=== PATIENT | female | born 1950 | race American Indian/Alaskan Native ===

== ENCOUNTER 2017-04-04 12:36 | Emergency (ER) | payer OTHER, MEDICARE, MEDICAID ==
[2017-04-04 12:57] VITALS: BP 169/96
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
== END 2017-04-04 14:55 | disposition home or self-care (01) ==
LOC: DL.ED 12:36
DX: S16.1XXA Strain of muscle, fascia and tendon at neck level, initial encounter (principal); I11.0 Hypertensive heart disease with heart failure; I50.9 Heart failure, unspecified; I25.10 Atherosclerotic heart disease of native coronary artery without angina pectoris; E78.00 Pure hypercholesterolemia, unspecified; K21.9 Gastro-esophageal reflux disease without esophagitis; F17.210 Nicotine dependence, cigarettes, uncomplicated; Z90.49 Acquired absence of other specified parts of digestive tract; Z90.710 Acquired absence of both cervix and uterus; Z98.890 Other specified postprocedural states; Z79.82 Long term (current) use of aspirin; Z88.0 Allergy status to penicillin; Z88.5 Allergy status to narcotic agent; Z88.8 Allergy status to other drugs, medicaments and biological substances; Z88.1 Allergy status to other antibiotic agents; V49.50XA Passenger injured in collision with unspecified motor vehicles in traffic accident, initial encounter; Y92.410 Unspecified street and highway as the place of occurrence of the external cause
CPT/HCPCS: 72125; 72128; 99283

== ENCOUNTER 2017-11-05 21:54 | Emergency (ER) | payer MEDICARE, MEDICAID ==
[2017-11-05 22:00] VITALS: BP 148/70
--- NOTE | 2017-11-05 22:01 | EDM.PDOC ---
ED HPI GENERAL MEDICAL PROBLEM - General Chief Complaint: Lower Extremity Injury/Pain Stated Complaint: KNEE PROBLEM [id number] Time Seen by Provider: 11/05/17 21:59 Source of Information: Reports: Patient History Limitations: Reports: No Limitations - History of Present Illness INITIAL COMMENTS - FREE TEXT/NARRATIVE: twisted knee yesterday, all swollen and painful now. Left Knee Pain Score (Numeric/FACES): 5 - Related Data Allergies Allergy/AdvReac Type Severity Reaction Status Date / Time codeine Allergy Severe Swelling Verified 11/05/17 22:04 doxycycline Allergy Nausea and Verified 11/05/17 22:04 Vomiting eletriptan HBr [From Relpax] Allergy Nausea and Verified 11/05/17 22:04 Vomiting Penicillins Allergy Airway Verified 11/05/17 22:04 Tightness pseudoephedrine Allergy Nausea and Verified 11/05/17 22:04 Vomiting tramadol Allergy Nausea and Verified 11/05/17 22:04 Vomiting Home Meds: Home Meds Furosemide [Lasix] 20 mg PO ASDIRECTED PRN 11/05/13 [History] Gabapentin [Neurontin] 300 mg PO TID 04/23/15 [History] Nitroglycerin [Nitrostat] 1 tab SL ASDIRECTED PRN 04/23/15 [History] oxyCODONE HCl/Acetaminophen [Percocet 10-325 mg Tablet] 1 each PO TID PRN [History] Past Medical History HEENT History: Reports: Impaired Vision Cardiovascular History: Reports: Arrhythmia, CAD, Heart Failure, High Cholesterol, Hypertension Gastrointestinal History: Reports: Chronic Constipation, GERD 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: Musculoskeletal History: Reports: Other (See Below) Other Musculoskeletal History: scoliosis - Past Surgical History HEENT Surgical History: Reports: Tonsillectomy Respiratory Surgical History: Reports: None GI Surgical History: Reports: Appendectomy, Cholecystectomy Female Surgical History: Reports: Section, Hysterectomy Musculoskeletal Surgical History: Reports: Arthroscopic Knee Social & Family History - Family History Cardiac: Reports: CAD Oncologic: Reports: Lung - Tobacco Use Smoking Status *Q: Current Every Day Smoker Years of Tobacco use: 30 Packs/Tins Daily: 0.5 Used Tobacco, but Quit: No Second Hand Smoke Exposure: No - Caffeine Use Caffeine Use: Reports: Coffee, Tea - Alcohol Use Days Per Week of Alcohol Use: 0 - Recreational Drug Use Recreational Drug Use: No - Living Situation & Occupation Living situation: Reports: with Family Occupation: Unemployed Review of Systems - Review of Systems Review Of Systems: ROS reveals no pertinent complaints other than HPI. ED EXAM, GENERAL - Physical Exam Exam: See Below Exam Limited By: No Limitations General Appearance: Alert, WD/WN, Mild Distress, Other (discomfort) Ears: Hearing Grossly Normal Throat/Mouth: Normal Voice, No Airway Compromise Head: Atraumatic Neck: Non-Tender, Full Range of Motion Respiratory/Chest: No Respiratory Distress Cardiovascular: Regular Rate, Rhythm GI/Abdominal: Soft, Non-Tender Extremities: Other (left knee swollen tender R/P, NV wnl, gait limited to pain) Neurological: Alert, Oriented, Normal Cognition, No Motor/Sensory Deficits Psychiatric: Normal Affect, Normal Mood Skin Exam: Warm, Dry, Normal Color Lymphatic: No Adenopathy Course - Vital Signs Last Recorded V/S: Last Vital Signs Temp 36.8 C 11/05/17 21:58 Pulse 88 11/05/17 21:58 Resp 16 11/05/17 21:58 BP 148/70 H 11/05/17 21:58 Pulse Ox 99 11/05/17 21:58 - Re-Assessments/Exams Free Text/Narrative Re-Assessment/Exam: 11/05/17 22:32 results discussed with pt Departure - Departure Time of Disposition: 22:32 Disposition: Home, Self-Care 01 Condition: Good Clinical Impression: Sprain of knee - Discharge Information Instructions: Knee Sprain, Adult, [id number] Forms: ED Department Discharge Additional Instructions: 1) elevate knee as much as possible 2) wear YUE for comfort 3) see clinic tomorrow for MRI SCAN of knee OR ORTHOPEDIC REFERRAL
[2017-11-05] MEDS ORDERED: traMADol 50 MG Tab PO ONE (22:32)
[2017-11-05] MEDS ORDERED: Ketorolac 30 MG/ML SDV IM ONE (22:40)
== END 2017-11-05 22:48 | disposition home or self-care (01) ==
LOC: DL.ED 21:54
DX: S83.92XA Sprain of unspecified site of left knee, initial encounter (principal); I11.0 Hypertensive heart disease with heart failure; I50.9 Heart failure, unspecified; F17.210 Nicotine dependence, cigarettes, uncomplicated; Z88.5 Allergy status to narcotic agent; Z88.1 Allergy status to other antibiotic agents; Z88.0 Allergy status to penicillin; Z88.8 Allergy status to other drugs, medicaments and biological substances; Z79.899 Other long term (current) drug therapy; X50.9XXA Other and unspecified overexertion or strenuous movements or postures, initial encounter
CPT/HCPCS: 73562; 96372; 99283; J1885

== ENCOUNTER 2017-12-12 21:52 | Emergency (ER) | payer MEDICARE, MEDICAID ==
[2017-12-12] MEDS ORDERED: Lidocaine 1% 30 ML SDV INJECT ONE (22:44)
[2017-12-12] MEDS ORDERED: Clindamycin HCl 150 MG Cap PO ONE (22:46)
[2017-12-12] MEDS ORDERED: Acetaminophen/oxyCODONE 325-5 MG Tab PO ONE (22:49)
[2017-12-12] MEDS ORDERED: Ketorolac 30 MG/ML SDV IM ONE (23:04)
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
[2017-12-12 23:16] VITALS: BP 136/65
== END 2017-12-12 23:24 | disposition home or self-care (01) ==
LOC: DL.ED 21:52
DX: L02.31 Cutaneous abscess of buttock (principal); F17.210 Nicotine dependence, cigarettes, uncomplicated; I11.0 Hypertensive heart disease with heart failure; I50.9 Heart failure, unspecified; E78.00 Pure hypercholesterolemia, unspecified; K21.9 Gastro-esophageal reflux disease without esophagitis; Z79.899 Other long term (current) drug therapy; Z88.1 Allergy status to other antibiotic agents; Z88.0 Allergy status to penicillin; Z88.8 Allergy status to other drugs, medicaments and biological substances; Z88.5 Allergy status to narcotic agent
CPT/HCPCS: 10060; 96372; 99282; 99283; A9270-GY; J1885

== ENCOUNTER 2017-12-13 10:51 | Day surgery (SDC) | payer MEDICARE, MEDICAID ==
[2017-12-13] MEDS ORDERED: Dexamethasone 4 MG/ML SDV IV ONE (10:52)
[2017-12-13] MEDS ORDERED: Midazolam 1 MG/ML 2 ML SDV IV ONE (10:52)
[2017-12-13] MEDS ORDERED: Propofol 200 MG/20 ML SDV IV ONE (10:52)
[2017-12-13] MEDS ORDERED: fentaNYL 100 MCG/2 ML SDV IV ONE (10:52)
[2017-12-13] MEDS ORDERED: Lactated Ringers 1,000 ML IV SCH (11:30)
[2017-12-13] MEDS ORDERED: Lidocaine 1% 30 ML SDV ONE (12:39)
[2017-12-13] MEDS ORDERED: Lidocaine 1% 30 ML SDV INJECT ONE (13:03)
[2017-12-13 14:51] VITALS: BP 111/55
--- NOTE | 2017-12-14 01:08 | OR ---
DATE: 12/13/2017 PREOPERATIVE DIAGNOSIS: Right perirectal abscess. POSTOPERATIVE DIAGNOSIS: Right buttocks abscess, does not seem to be a pair rectal with no communication to the rectum. PROCEDURE: Incision and drainage with debridement of right buttocks abscess. ANESTHESIA: Local plus MAC. SPECIMEN: Necrotic skin and culture. OPERATIVE FINDINGS: About a 1 cm necrotic full-thickness area of skin overlying some purulent drainage of the right buttocks. INDICATION FOR PROCEDURE: This 67-year-old female presented to the emergency room with complaints of a week-long history of right-sided buttock pain. The patient states that it is kind of spontaneously drained, but really this is secondary to some necrotic skin. It is difficult to tell if this is really a perirectal or straightforward buttocks abscess. PROCEDURE IN DETAIL: After adequate preparation, xylocaine was used to infiltrate an elliptical area around this necrotic skin. This was carried full thickness through the skin and down into subcutaneous tissue where healthy tissue was encountered. Culture of the deep wound was taken both aerobic and anaerobic and the excised necrotic skin was sent for specimen. Hemostasis was controlled by cautery. The wound was packed open with a 2 x 2 gauze pad and the patient will change this daily at home. [facility] /[id number]
== END 2017-12-13 14:45 | disposition home or self-care (01) ==
LOC: DL.SDS 10:51 → DL.GSCL 10:51 → EDSTATUS 11:30 → DL.SDS 14:45
PROVIDERS: ATTEND Surgery
DX: L02.31 Cutaneous abscess of buttock (principal); I25.2 Old myocardial infarction; Z88.0 Allergy status to penicillin; Z88.5 Allergy status to narcotic agent; Z88.8 Allergy status to other drugs, medicaments and biological substances
CPT/HCPCS: 10060; 87070; 87075; 87077; 87186; 93005; 93010; J1100; J2250; J2704; J3010; J7120; 88304

== ENCOUNTER 2023-08-14 18:12 | Emergency (ER) | payer MEDICARE, MEDICAID ==
[2023-08-14 18:30] VITALS: BP 218/96; PULSE 79
[2023-08-14 18:49] LABS: HEMATOCRIT 39.4 % (37.0-47.0); HEMOGLOBIN 13.2 g/dL (12.0-16.0); MEAN CORPUSCULAR HEMOGLOBIN 29.6 pg (27.0-34.0); MEAN CORPUSCULAR HGB CONC 33.5 g/dL (33.0-35.0); MEAN CORPUSCULAR VOLUME 88.3 fL (80-100); PLATELET COUNT,PLT 222 10^3/uL (150-450); RED BLOOD CELL COUNT 4.46 10^6/uL (4.2-5.4); WHITE BLOOD CELL COUNT,WBC 9.1 10^3/uL (5.0-10.0)
[2023-08-14 18:52] LABS: BASOPHILS PERCENT AUTO 0.4 % (0.0-1.0); LYMPHOCYTES PERCENT AUTO 17.6 % (20.5-50.1); MONOCYTES PERCENT AUTO 7.1 % (2-8); NEUTROPHILS PERCENT AUTO 40.9 % (42.2-75.2)
[2023-08-14 19:07] LABS: A/G RATIO 1.1; ALANINE AMINOTRANSFERASE,ALT 18 U/L (14-59); ALBUMIN 3.5 g/dL (3.4-5.0); ALKALINE PHOSPHATASE 84 U/L (46-116); ANION GAP 9.6 mEq/L (7-13); ASPARTATE AMNIOTRANSFERASE,AST 17 U/L (15-37); BILIRUBIN TOTAL 0.4 mg/dL (0.2-1.0); BLOOD UREA NITROGEN,BUN 9 mg/dL (7-18); BUN/CREATININE RATIO 13.6 (No establ ref range); CALCIUM 8.7 mg/dL (8.5-10.1); CARBON DIOXIDE,CO2 28 mmol/L (21-32); CHLORIDE,CL 104 mmol/L (98-107); CREATININE 0.66 mg/dL (0.55-1.02); GLUCOSE RANDOM 100 mg/dL (70-99); POTASSIUM,K 3.6 mmol/L (3.5-5.1); PROTEIN TOTAL,TP 6.8 g/dL (6.4-8.2); SODIUM,NA 138 mmol/L (136-145)
[2023-08-14 19:13] LABS: ESTIMATED GFR 93 mL/min (>=60)
[2023-08-14 20:29] LABS: EOSINOPHILS PERCENT MAN 36 % (1-3); LYMPHOCYTES PERCENT MAN 18 % (20-50); MONOCYTES PERCENT MAN 3 % (2-8); SEG NEUTROPHILS PERCENT MAN 43 % (42-75)
== END 2023-08-14 19:33 | disposition home or self-care (01) ==
LOC: DL.ED 18:12
DX: J44.1 Chronic obstructive pulmonary disease with (acute) exacerbation (principal); I11.0 Hypertensive heart disease with heart failure; I50.9 Heart failure, unspecified; I25.10 Atherosclerotic heart disease of native coronary artery without angina pectoris; I25.2 Old myocardial infarction; Z95.5 Presence of coronary angioplasty implant and graft; Z88.5 Allergy status to narcotic agent; Z88.0 Allergy status to penicillin; Z88.1 Allergy status to other antibiotic agents; Z88.8 Allergy status to other drugs, medicaments and biological substances; Z90.49 Acquired absence of other specified parts of digestive tract; Z90.710 Acquired absence of both cervix and uterus
CPT/HCPCS: 36415; 71046; 80053; 83605; 84145; 85025; 99283; 99284

== ENCOUNTER 2024-01-18 19:08 | Emergency (ER) | payer MEDICARE ==
[2024-01-18 19:22] VITALS: BP 169/80; PULSE 87
[2024-01-18] MEDS: Acetaminophen/HYDROcodone 325-10 MG Tab PO ONE (19:27)
== END 2024-01-18 19:54 | disposition home or self-care (01) ==
LOC: DL.ED 19:08
DX: S83.91XA Sprain of unspecified site of right knee, initial encounter (principal); I11.0 Hypertensive heart disease with heart failure; I50.9 Heart failure, unspecified; I25.10 Atherosclerotic heart disease of native coronary artery without angina pectoris; J44.9 Chronic obstructive pulmonary disease, unspecified; E78.00 Pure hypercholesterolemia, unspecified; Z90.49 Acquired absence of other specified parts of digestive tract; Z88.5 Allergy status to narcotic agent; Z88.0 Allergy status to penicillin; Z88.8 Allergy status to other drugs, medicaments and biological substances; Z79.899 Other long term (current) drug therapy; X50.1XXA Overexertion from prolonged static or awkward postures, initial encounter; Y93.41 Activity, dancing
CPT/HCPCS: 73564; 99283; A9270

== ENCOUNTER 2024-03-02 08:46 | Inpatient (IN) | payer MEDICARE ==
[2024-03-02] MEDS: Albuterol/Ipratropium 3.0-0.5 MG/3 ML Neb Soln NEB ONE ×2 (09:19→09:20)
[2024-03-02] MEDS: Albuterol/Ipratropium 3.0-0.5 MG/3 ML Neb Soln ONE (09:20)
[2024-03-02 09:24] LABS: HEMATOCRIT 42.5 % (37.0-47.0); HEMOGLOBIN 14.5 g/dL (12.0-16.0); MEAN CORPUSCULAR HEMOGLOBIN 29.4 pg (27.0-34.0); MEAN CORPUSCULAR HGB CONC 34.1 g/dL (33.0-35.0); MEAN CORPUSCULAR VOLUME 86.2 fL (80-100); PLATELET COUNT,PLT 262 10^3/uL (150-450); RED BLOOD CELL COUNT 4.93 10^6/uL (4.2-5.4); WHITE BLOOD CELL COUNT,WBC 7.7 10^3/uL (5.0-10.0)
[2024-03-02 09:26] LABS: BASOPHILS PERCENT AUTO 0.7 % (0.0-1.0); EOSINOPHILS PERCENT AUTO 21.4 % (1.0-3.0); LYMPHOCYTES PERCENT AUTO 19.1 % (20.5-50.1); MONOCYTES PERCENT AUTO 6.5 % (2-8); NEUTROPHILS PERCENT AUTO 52.3 % (42.2-75.2)
[2024-03-02 09:45] LABS: LACTIC ACID 0.8 mmol/L (0.4-2.0)
[2024-03-02 09:47] LABS: A/G RATIO 1.2; ALANINE AMINOTRANSFERASE,ALT 14 U/L (14-59); ALBUMIN 4.2 g/dL (3.4-5.0); ALKALINE PHOSPHATASE 82 U/L (46-116); ANION GAP 7.6 mEq/L (7-13); ASPARTATE AMNIOTRANSFERASE,AST 13 U/L (15-37); B-TYPE NATRIURETIC PEPTIDE,BNP 28 pg/ml (0-100); BILIRUBIN TOTAL 0.6 mg/dL (0.2-1.0); BLOOD UREA NITROGEN,BUN 13 mg/dL (7-18); BUN/CREATININE RATIO 14.1 (No establ ref range); CALCIUM 9.3 mg/dL (8.5-10.1); CARBON DIOXIDE,CO2 26 mmol/L (21-32); CHLORIDE,CL 102 mmol/L (98-107); CREATININE 0.92 mg/dL (0.55-1.02); EST CRCL DRUG DOSING (CG) 43.72 mL/min; GLUCOSE RANDOM 112 mg/dL (70-99); MAGNESIUM 2.3 mg/dL (1.8-2.4); POTASSIUM,K 3.6 mmol/L (3.5-5.1); PROTEIN TOTAL,TP 7.7 g/dL (6.4-8.2); SODIUM,NA 132 mmol/L (136-145)
[2024-03-02 09:48] LABS: C-REACTIVE PROTEIN < 0.50 ng/dL (<=0.50); ESTIMATED GFR 66 mL/min (>=60)
[2024-03-02] MEDS: Morphine 2 MG/ML SYRINGE IVPUSH ONE (09:55)
[2024-03-02] MEDS: methylPREDNISolone Sodium Succinate 125 MG/2 ML SDV IVPUSH ONE (09:57)
[2024-03-02] MEDS: Magnesium Sulfate/Water 2 GM in Premix Bag 1 BAG IV ONE (09:59)
[2024-03-02] MEDS: Sodium Chloride 0.9% 1,000 ML IV ONE (10:00)
[2024-03-02 10:01] LABS: EOSINOPHILS PERCENT MAN 24 % (1-3); LYMPHOCYTES PERCENT MAN 16 % (20-50); MONOCYTES PERCENT MAN 8 % (2-8); SEG NEUTROPHILS PERCENT MAN 52 % (42-75)
[2024-03-02 10:07] LABS: INR 0.9 (0.9-1.2); PROTHROMBIN TIME 9.7 SEC (9.0-12.0); PTT,PARTIAL THROMBOPLSTIN TIME 27.2 SEC (22.0-34.0)
[2024-03-02] MEDS ORDERED: Docusate Sodium 100 MG Cap PO PRN (12:22)
[2024-03-02] MEDS ORDERED: Ondansetron 4 MG/2 ML SDV IVPUSH PRN (12:22)
[2024-03-02] MEDS: guaiFENesin/Dextromethorphan 100-10 MG/5 ML Soln 5 ML Cup PO PRN (14:02)
[2024-03-02] MEDS: guaiFENesin 600 MG Tab.ER PO SCH (14:02)
[2024-03-02] MEDS: Albuterol/Ipratropium 3.0-0.5 MG/3 ML Neb Soln NEB SCH (14:24)
[2024-03-02] MEDS ORDERED: Furosemide 20 MG Tab PO PRN (14:38)
[2024-03-02] MEDS ORDERED: Nitroglycerin 0.4 MG Tab.SL SL PRN (14:38)
[2024-03-02] MEDS: oxyCODONE 5 MG Tab PO PRN (16:29)
[2024-03-02] MEDS: methylPREDNISolone Sodium Succinate 40 MG/1 ML SDV IVPUSH SCH (16:31)
[2024-03-02 17:25] LABS: BASOPHILS PERCENT AUTO 0.3 % (0.0-1.0); EOSINOPHILS PERCENT AUTO 0.1 % (1.0-3.0); HEMATOCRIT 42.2 % (37.0-47.0); HEMOGLOBIN 14.3 g/dL (12.0-16.0); LYMPHOCYTES PERCENT AUTO 5.7 % (20.5-50.1); MEAN CORPUSCULAR HEMOGLOBIN 29.1 pg (27.0-34.0); MEAN CORPUSCULAR HGB CONC 33.9 g/dL (33.0-35.0); MEAN CORPUSCULAR VOLUME 85.9 fL (80-100); MONOCYTES PERCENT AUTO 0.5 % (2-8); NEUTROPHILS PERCENT AUTO 93.4 % (42.2-75.2); PLATELET COUNT,PLT 263 10^3/uL (150-450); RED BLOOD CELL COUNT 4.91 10^6/uL (4.2-5.4); WHITE BLOOD CELL COUNT,WBC 7.5 10^3/uL (5.0-10.0)
[2024-03-02 17:42] LABS: ANION GAP 15.2 mEq/L (7-13); CALCIUM 8.8 mg/dL (8.5-10.1); CREATININE 1.18 mg/dL (0.55-1.02); EST CRCL DRUG DOSING (CG) 34.08 mL/min; POTASSIUM,K 3.2 mmol/L (3.5-5.1)
[2024-03-02] MEDS: Potassium Chloride 10 MEQ Tab.ER PO ONE (19:53)
[2024-03-02] MEDS: Acetaminophen/oxyCODONE 325-5 MG Tab PO SCH (20:09)
[2024-03-02] MEDS: oxyCODONE 5 MG Tab PO SCH (20:10)
[2024-03-03 06:25] LABS: BASOPHILS PERCENT AUTO 0.2 % (0.0-1.0); HEMATOCRIT 37.6 % (37.0-47.0); HEMOGLOBIN 12.7 g/dL (12.0-16.0); LYMPHOCYTES PERCENT AUTO 7.1 % (20.5-50.1); MEAN CORPUSCULAR HEMOGLOBIN 29.2 pg (27.0-34.0); MEAN CORPUSCULAR HGB CONC 33.8 g/dL (33.0-35.0); MEAN CORPUSCULAR VOLUME 86.4 fL (80-100); MONOCYTES PERCENT AUTO 1.6 % (2-8); NEUTROPHILS PERCENT AUTO 91.1 % (42.2-75.2); PLATELET COUNT,PLT 253 10^3/uL (150-450); RED BLOOD CELL COUNT 4.35 10^6/uL (4.2-5.4); WHITE BLOOD CELL COUNT,WBC 10.7 10^3/uL (5.0-10.0)
[2024-03-03 06:41] LABS: ANION GAP 11.5 mEq/L (7-13); CALCIUM 8.9 mg/dL (8.5-10.1); CREATININE 0.99 mg/dL (0.55-1.02); EST CRCL DRUG DOSING (CG) 40.62 mL/min; POTASSIUM,K 3.5 mmol/L (3.5-5.1)
[2024-03-03] MEDS: Spironolactone 25 MG Tab PO SCH (08:59)
[2024-03-03] MEDS: Metoprolol Succinate 50 MG Tab.ER PO SCH (08:59)
[2024-03-03] MEDS: amLODIPine 5 MG Tab PO SCH (08:59)
[2024-03-03] MEDS: TIOTROPIUM INH SCH (09:00)
[2024-03-03] MEDS: OLODATEROL INH SCH (09:00)
[2024-03-03] MEDS: Sodium Chloride 0.9% 10 ML Syringe FLUSH PRN (09:08)
[2024-03-03] MEDS: Enoxaparin 40 MG/0.4 ML Syringe SUBCUT SCH (09:08)
[2024-03-03] MEDS ORDERED: Naproxen 250 MG Tab PO PRN (17:16)
[2024-03-03] MEDS: Azithromycin 250 MG Tab PO SCH (18:05)
[2024-03-04] MEDS: Benzonatate 100 MG Cap PO PRN (03:47)
[2024-03-05 08:04] VITALS: BP 140/68; PULSE 77
== END 2024-03-05 10:15 | disposition home or self-care (01) | DRG 192 ==
LOC: DL.ED 08:46 → DL.MS 11:47 → DL.ED 12:44
PROVIDERS: ADMIT Internal Medicine; ATTEND Internal Medicine
DX: J44.1 Chronic obstructive pulmonary disease with (acute) exacerbation (principal); I25.10 Atherosclerotic heart disease of native coronary artery without angina pectoris; I11.0 Hypertensive heart disease with heart failure; Z66 Do not resuscitate; I50.9 Heart failure, unspecified; H54.7 Unspecified visual loss; E78.00 Pure hypercholesterolemia, unspecified; Z88.1 Allergy status to other antibiotic agents; K59.09 Other constipation; K21.9 Gastro-esophageal reflux disease without esophagitis; M19.90 Unspecified osteoarthritis, unspecified site; G43.909 Migraine, unspecified, not intractable, without status migrainosus; Z88.5 Allergy status to narcotic agent; Z88.0 Allergy status to penicillin; Z88.8 Allergy status to other drugs, medicaments and biological substances; Z79.51 Long term (current) use of inhaled steroids; Z79.899 Other long term (current) drug therapy; I25.2 Old myocardial infarction; Z90.89 Acquired absence of other organs; Z95.5 Presence of coronary angioplasty implant and graft; Z90.49 Acquired absence of other specified parts of digestive tract; Z98.890 Other specified postprocedural states; Z90.710 Acquired absence of both cervix and uterus
CPT/HCPCS: 36415; 71045; 71046; 80053; 83605; 83735; 83880; 84145; 84484; 85025; 85610; 85730; 86140; 87040 ×2; 87804 ×2; 93005; 93010; 94640 ×4; 96361; 96365; 96375; 99284; 99285; J2270; J2919; J3475; J7030; U0002; 80048; 94010; 94060; 94664; 94667; 99223; 99232; 99239; A9270-GY; J1650; J3490; J7620-GY

== ENCOUNTER 2024-03-18 15:05 | Emergency (ER) | payer MEDICARE ==
[2024-03-18] MEDS: Magnesium Sulfate/Water 2 GM in Premix Bag 1 BAG IV ONE (15:30)
[2024-03-18] MEDS: Dexamethasone 4 MG/ML SDV IVPUSH ONE (15:30)
[2024-03-18] MEDS: Albuterol/Ipratropium 3.0-0.5 MG/3 ML Neb Soln NEB ONE (15:30)
[2024-03-18 15:42] LABS: HEMATOCRIT 41.8 % (37.0-47.0); MEAN CORPUSCULAR HEMOGLOBIN 29.3 pg (27.0-34.0); MEAN CORPUSCULAR HGB CONC 33.5 g/dL (33.0-35.0); MEAN CORPUSCULAR VOLUME 87.4 fL (80-100); PLATELET COUNT,PLT 205 10^3/uL (150-450); RED BLOOD CELL COUNT 4.78 10^6/uL (4.2-5.4); WHITE BLOOD CELL COUNT,WBC 13.8 10^3/uL (5.0-10.0)
[2024-03-18 15:43] VITALS: BP 169/89; PULSE 88
[2024-03-18 15:44] LABS: LYMPHOCYTES PERCENT AUTO 8.8 % (20.5-50.1); MONOCYTES PERCENT AUTO 5.6 % (2-8); NEUTROPHILS PERCENT AUTO 78.7 % (42.2-75.2)
[2024-03-18 15:45] LABS: BASOPHILS PERCENT AUTO 0.7 % (0.0-1.0); EOSINOPHILS PERCENT AUTO 6.2 % (1.0-3.0)
[2024-03-18 15:59] LABS: A/G RATIO 1.1; ANION GAP 12.8 mEq/L (7-13); BILIRUBIN TOTAL 0.9 mg/dL (0.2-1.0); CALCIUM 8.9 mg/dL (8.5-10.1); CREATININE 1.27 mg/dL (0.55-1.02); EST CRCL DRUG DOSING (CG) 31.67 mL/min; MAGNESIUM 2.2 mg/dL (1.8-2.4); POTASSIUM,K 3.8 mmol/L (3.5-5.1); PROTEIN TOTAL,TP 7.5 g/dL (6.4-8.2)
[2024-03-18 16:02] LABS: EOSINOPHILS PERCENT MAN 6 % (1-3); LYMPHOCYTES PERCENT MAN 8 % (20-50); MONOCYTES PERCENT MAN 4 % (2-8); SEG NEUTROPHILS PERCENT MAN 82 % (42-75)
[2024-03-18] MEDS: Albuterol 0.083% 2.5 MG/3 ML Neb Soln NEB ONE (16:02)
== END 2024-03-18 16:40 | disposition home or self-care (01) ==
LOC: DL.ED 15:05
DX: J44.1 Chronic obstructive pulmonary disease with (acute) exacerbation (principal); J18.9 Pneumonia, unspecified organism; I11.0 Hypertensive heart disease with heart failure; I50.9 Heart failure, unspecified; I25.2 Old myocardial infarction; I25.10 Atherosclerotic heart disease of native coronary artery without angina pectoris; Z90.49 Acquired absence of other specified parts of digestive tract; Z95.5 Presence of coronary angioplasty implant and graft; Z79.899 Other long term (current) drug therapy; Z88.5 Allergy status to narcotic agent; Z88.0 Allergy status to penicillin; Z88.8 Allergy status to other drugs, medicaments and biological substances
CPT/HCPCS: 36415; 71045; 80053; 83605; 83735; 83880; 85025; 96374; 96375; 99285; J1100; J3475; 99284; J7613-GY; J7620-GY

== ENCOUNTER 2024-12-18 14:31 | Emergency (ER) | payer MEDICARE ==
[2024-12-18] MEDS: Albuterol/Ipratropium 3.0-0.5 MG/3 ML Neb Soln NEB ONE ×3 (14:37→16:29)
[2024-12-18] MEDS: Albuterol/Ipratropium 3.0-0.5 MG/3 ML Neb Soln ONE (14:44)
[2024-12-18] MEDS: methylPREDNISolone Sodium Succinate 125 MG/2 ML SDV IVPUSH ONE (14:49)
[2024-12-18] MEDS: Magnesium Sulfate 2 GM/50 mL 2 GM in Premix Bag 1 BAG IV ONE (14:49)
[2024-12-18 14:57] LABS: HEMATOCRIT 41.3 % (37.0-47.0); HEMOGLOBIN 14.2 g/dL (12.0-16.0); MEAN CORPUSCULAR HEMOGLOBIN 27.7 pg (27.0-34.0); MEAN CORPUSCULAR HGB CONC 34.4 g/dL (33.0-35.0); MEAN CORPUSCULAR VOLUME 80.5 fL (80-100); PLATELET COUNT,PLT 314 10^3/uL (150-450); RED BLOOD CELL COUNT 5.13 10^6/uL (4.2-5.4); WHITE BLOOD CELL COUNT,WBC 9.7 10^3/uL (5.0-10.0)
[2024-12-18 14:59] LABS: BASOPHILS PERCENT AUTO 0.6 % (0.0-1.0); EOSINOPHILS PERCENT AUTO 14.6 % (1.0-3.0); LYMPHOCYTES PERCENT AUTO 12.5 % (20.5-50.1); MONOCYTES PERCENT AUTO 6.1 % (2-8); NEUTROPHILS PERCENT AUTO 66.2 % (42.2-75.2)
[2024-12-18 15:09] LABS: BAND PERCENT MAN 2 %; EOSINOPHILS PERCENT MAN 14 % (1-3); LYMPHOCYTES PERCENT MAN 13 % (20-50); MONOCYTES PERCENT MAN 1 % (2-8); SEG NEUTROPHILS PERCENT MAN 70 % (42-75)
[2024-12-18 15:10] LABS: NRBC MANUAL 1 /100WBC
[2024-12-18 15:14] LABS: A/G RATIO 1.1; ALBUMIN 4.3 g/dL (3.4-5.0); ANION GAP 15.6 mEq/L (7-13); BILIRUBIN TOTAL 0.6 mg/dL (0.2-1.0); BUN/CREATININE RATIO 11.5 (No establ ref range); C-REACTIVE PROTEIN 1.57 ng/dL (<=0.50); CALCIUM 9.3 mg/dL (8.5-10.1); CREATININE 1.13 mg/dL (0.55-1.02); EST CRCL DRUG DOSING (CG) 35.07 mL/min; LACTIC ACID 0.9 mmol/L (0.4-2.0); POTASSIUM,K 3.6 mmol/L (3.5-5.1); PROTEIN TOTAL,TP 8.2 g/dL (6.4-8.2)
[2024-12-18] MEDS: Acetaminophen 500 MG Tab PO ONE (15:29)
[2024-12-18] MEDS: Sodium Chloride 0.9% 1,000 ML IV ONE (15:30)
[2024-12-18 16:33] VITALS: BP 169/86; PULSE 107
[2024-12-18] MEDS: Iopamidol 755 Mg/ML 100 ML Bottle IVPUSH ONE (18:46)
== END 2024-12-18 16:51 | disposition home or self-care (01) ==
LOC: DL.ED 14:31
DX: J44.1 Chronic obstructive pulmonary disease with (acute) exacerbation (principal); I11.0 Hypertensive heart disease with heart failure; I50.9 Heart failure, unspecified; I48.91 Unspecified atrial fibrillation; I25.10 Atherosclerotic heart disease of native coronary artery without angina pectoris; M19.90 Unspecified osteoarthritis, unspecified site; Z88.5 Allergy status to narcotic agent; Z88.0 Allergy status to penicillin; Z88.8 Allergy status to other drugs, medicaments and biological substances; Z79.899 Other long term (current) drug therapy; Z79.02 Long term (current) use of antithrombotics/antiplatelets; Z90.710 Acquired absence of both cervix and uterus; Z90.49 Acquired absence of other specified parts of digestive tract
CPT/HCPCS: 36415; 71045; 71275; 80053; 83605; 83880; 84484; 85025; 86140; 93005; 94640; 96361; 96374; 96375; 99285; A9270; J2919; J3475; J7030; Q9967

== ENCOUNTER 2025-01-16 14:53 | Emergency (ER) | payer MEDICARE ==
[2025-01-16] MEDS: Ketorolac 30 MG/ML SDV IM ONE (15:33)
[2025-01-16] MEDS: fentaNYL 100 MCG/2 ML SDV IM ONE (15:34)
[2025-01-16 19:06] VITALS: BP 167/86; PULSE 85
== END 2025-01-16 18:04 | disposition home or self-care (01) ==
LOC: DL.ED 14:53
DX: M25.561 Pain in right knee (principal); I25.10 Atherosclerotic heart disease of native coronary artery without angina pectoris; I11.0 Hypertensive heart disease with heart failure; E78.00 Pure hypercholesterolemia, unspecified; I50.9 Heart failure, unspecified; J44.9 Chronic obstructive pulmonary disease, unspecified; Z88.5 Allergy status to narcotic agent; Z88.0 Allergy status to penicillin; Z88.8 Allergy status to other drugs, medicaments and biological substances; Z79.51 Long term (current) use of inhaled steroids; Z79.899 Other long term (current) drug therapy
CPT/HCPCS: 73562; 96372; 99283; J1885; J3010